=== PATIENT | male | born 1980 | race African-American/Black ===

== ENCOUNTER 2023-01-01 06:06 | Emergency (ER) | payer OTHER ==
[~2023-01-01] VITALS: Ht 177.8 cm; Wt 79.4 kg
[2023-01-01 06:10] VITALS: BP 160/64
[2023-01-01] MEDS ORDERED: TYLENOL PO STA (06:39)
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
[2023-01-01 06:40] VITALS: BP 115/71
[2023-01-01] MEDS ORDERED: TYLENOL PO ONE (06:42)
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
[2023-01-01 07:38] VITALS: BP 99/70
== END 2023-01-01 07:57 | disposition home or self-care (01) ==
LOC: ER 06:06
DX: S10.93XA Contusion of unspecified part of neck, initial encounter (principal); S09.90XA Unspecified injury of head, initial encounter; F15.90 Other stimulant use, unspecified, uncomplicated; V89.2XXA Person injured in unspecified motor-vehicle accident, traffic, initial encounter; Y93.89 Activity, other specified; Y92.89 Other specified places as the place of occurrence of the external cause; Y99.8 Other external cause status
CPT/HCPCS: 99284; 70450; 72125; A9150